=== PATIENT | male | born 1960 | race African-American/Black ===

== ENCOUNTER 2019-10-05 15:50 | Emergency (ER) | payer BC ==
[~2019-10-05] VITALS: Ht 180.3 cm; Wt 99.0 kg
--- NOTE | 2019-10-05 16:52 | NUR ---
PT HAS CO OF HIGH BP W G[place], DENIES VISION CHANGES, CP, SOB, DENIES N/V/D. PT STATES HIS HIGH BP STARTED LAST WEEK, CALLED PCP AND WAS TOLD TO COME INTO ED. PT ALSO HAS BILAT LOWER LEG EDEMA 3+. PT STATES HIS LEGS SWELL AFTER WORK AND IT GOES DOWN. PT WAS AT WORK TODAY AND YESTERDAY. HX OF HTN, DM2. MEDICAL AUTHORIZATION SPECIALIST APPLIED, BP 215/115.
--- NOTE | 2019-10-05 17:11 | NUR ---
MEDICATED PER ORDERS. BP 198/98. PT STATES HE HAS BEEN STRESSED AT WORK. LAB AT BEDSIDE
[2019-10-05] MEDS ORDERED: AMLO10TA8 PO (17:28)
[2019-10-05 17:33] LABS: ALBUMIN 3.6 g/dL (3.4-5.0); ANION GAP 7 mmol/L (5-15); CALCIUM 8.3 mg/dL (8.5-10.1); CHLORIDE 102 mmol/L (98-107); CREATININE 3.57 mg/dL (0.7-1.3)
[2019-10-05] MEDS ORDERED: HYDR-3342 PO (17:52)
[2019-10-05] MEDS ORDERED: HYDR25TA6 PO (17:52)
[2019-10-05] MEDS ORDERED: CLON0.1T2 PO ×2 (17:52→18:14)
[2019-10-05] MEDS ORDERED: INSU100I13 SC (17:52)
--- NOTE | 2019-10-05 17:55 | NUR ---
PT UNSURE OF MEDICATIONS. PT IS CALLING HIS PHARMACY TO CONFIRM DOSES
[2019-10-05] MEDS ORDERED: LISI40TA PO (18:14)
[2019-10-05] MEDS ORDERED: SODIUM CHLORIDE FLUSH 10ML SYR IVF ONE (18:30)
[2019-10-05] MEDS ORDERED: ENALAPRILAT 1.25 MG/ML, 2ML IV ONE (18:30)
[2019-10-05] MEDS ORDERED: LABETALOL 5MG/ML, 20ML IVPush ONE (18:30)
[2019-10-05] MEDS ORDERED: LABETALOL 5MG/ML, 20ML ONE (18:50)
[2019-10-05] MEDS ORDERED: LORazepam 2 MG/ML, 1ML ONE (18:51)
[2019-10-05] MEDS ORDERED: LORazepam 2 MG/ML, 1ML IVPush ONE (19:00)
--- NOTE | 2019-10-05 19:08 | NUR ---
MEDICATED PER ORDERS. NO NEEDS AT THIS TIME. PT AMBULATED TO BATHROOM W STEADY GAIT
[2019-10-05 19:34] VITALS: BP 153/91
--- NOTE | 2019-10-05 19:41 | NUR ---
BP NOW 150/90. PT MORE RELAXED. CALLING SON FOR RIDE. READY FOR DC. IV REMOVED.
--- NOTE | 2019-10-05 19:43 | NUR ---
Patient/Caregiver given discharge instructions and they have confirmed that they understand the instructions. Patient ambulatory with steady gait.
--- NOTE | 2019-10-05 19:58 | NUR ---
Patient/Caregiver given discharge instructions and they have confirmed that they understand the instructions. Patient ambulatory with steady gait.
== END 2019-10-05 19:59 | disposition home or self-care (01) ==
LOC: ED 17:44
DX: I12.9 Hypertensive chronic kidney disease with stage 1 through stage 4 chronic kidney disease, or unspecified chronic kidney disease (principal); N18.9 Chronic kidney disease, unspecified; F41.1 Generalized anxiety disorder
CPT/HCPCS: 36415; 80048; 82040; 93005; 96374; 96375; 99284; J2060